=== PATIENT | male | born 1990 | race Asian ===

== ENCOUNTER 2025-04-07 10:21 | Emergency (ER) | payer OTHER, SELFPAY ==
[2025-04-07 10:23] VITALS: BP 143/107
[2025-04-07 10:34] LABS: Hematocrit 45.9 % (39.0-52.0); Hemoglobin 16.2 g/dL (13.0-18.0); Mean Corp Hgb Conc. 35.3 g/dL (33.0-37.0); Mean Corpuscular Volume 82.7 fL (80.0-94.0); Nucleated Red Blood Cells % 0 % (-); Platelet Count 265 10^3/uL (130-400); Red Cell Dist. Width 12.3 % (11.5-14.5)
--- NOTE | 2025-04-07 11:10 | ED.GENMED ---
History of Present Illness
General
Chief Complaint: Abdominal Pain
Source: patient and family
Exam Limitations: none
Time Seen by Provider: 04/07/25 11:00
Nursing documentation reviewed up to this point in time: agreed with
History of Present Illness
History of Present Illness:
35-year-old male companied by his parents presents with abdominal symptoms onset about a month ago diarrheal illness, self-limiting since any sick cramping changes bowel habits no normal bowel movement since then, cramping in his right groin, no
hematuria no fevers no blood in his stool saw his PCP had blood work told could be IBS or inflammatory bowel disease has no family history of laboratory bowel disease no weight loss no prior abdominal surgery
Phy Exam
Physical Exam
Physical Exam:
Physical Exam
General: no apparent distress, not acutely ill
Neck: Dry lips
Heart: s1/s2 regular rate and rhythm, no murmur. equal radial pulses.
Lungs: no acute respiratory distress. clear bilaterally
Abdomen: Tender in the right inguinal region minimally, no appreciable hernia
Neuro: alert and oriented. no focal neurological deficits
Skin: no rash
Psychiatric: well kept. interactive and cooperative
Extremities: no edema.
Course
Orders/Labs/Results
Orders:
Orders
04/07/25 10:25
IV Insert/Care/Rem.- Treatment PRN
04/07/25 10:29
Basic Metabolic Panel Urgent
Complete Blood Count/With Diff Urgent
Erythrocyte Sed Rate Urgent
Comment: ADD ON
Lipase Urgent
04/07/25 11:09
Add On- LAB Urgent
Tests Added?: ESR/CRP
CT Abd/pelvis W Iv Cont Urgent
Comment:
Reason For Exam: Lower abdominal pain change in bowel habits
Urinalysis Reflex To Culture Urgent
04/07/25 12:33
Dicyclomine [Bentyl] 20 mg PO NOW STA
04/07/25 12:34
Magnesium Hydroxide [Milk of Magnesia] 30 ml PO NOW STA
Abnormal Lab Results
04/07/25
10:29
Chloride 110 H mmol/L
(98-107)
Carbon Dioxide 20 L mmol/L
(22-30)
04/07/25 10:29
04/07/25 10:29
Vital Signs
Initial and Last Documented VS:
Initial Vital Signs
Temp Pulse Resp BP Pulse Ox
98.8 F 71 18 143/107 96
04/07/25 10:23 04/07/25 10:23 04/07/25 10:23 04/07/25 10:23 04/07/25 10:23
Last Documented Vital Signs
Temp Pulse Resp BP Pulse Ox
98.8 F 71 18 143/107 96
04/07/25 10:23 04/07/25 10:23 04/07/25 10:23 04/07/25 10:23 04/07/25 11:11
MDM/Problems Addressed
Differential Diagnosis Includes:
Colitis inflammatory bowel disease IBS renal colic hernia
MDM/Problems Addressed:
Abdominal symptoms
*Radiology
Radiology exam reviewed: radiology read reviewed
*Pulse Oximetry
SaO2: 96
Oxygen Mode of Delivery: Room air
Patient hypoxic: no
*Critical Care Note
Total Time (30-74mins, 75-104mins- exclusive of procedures): Not Applicable
Update Note
Update Note:
12:25 PM
Labs noted inflammatory markers noted CT report noted
Reviewed with family and patient will discharge with plan diet follow-up with GI/PCP
ED Attending Note
-
Portions of this chart may have been created with voice recognition software.� Occasional wrong word or��sound alike� substitutions may have occurred due to the inherent limitations of voice recognition software.
Discharge Plan
Departure
Patient Disposition: Home (Routine Discharge)
Date of Disposition: 04/07/25
Time of Disposition: 12:35
Patient with high blood pressure during this ER visit?: No
Condition: Good
Discharge Problem:
Abdominal pain
Instructions: Abdominal Pain, [place] diet
Prescriptions:
New
dicyclomine 20 mg tablet
20 mg PO QID PRN (Reason: abdominal cramps) Qty: 20 0RF
polyethylene glycol 3350 [Miralax] 17 gram/dose powder
4 g PO DAILY PRN (Reason: Constipation) Qty: 238 0RF
Referrals:
Jessie Rosales PA-C [Family Provider, Internal Medicine]
Nicky Perez DO [Active, Gastroenterology] - Next open appointment
Interventions
Interventions:
*Risk Screen - Suicide Last Done: 04/07/25 10:23
*Neglect/Abuse Screening Last Done: 04/07/25 10:23
Discharge Date and Time
Print Language: URDU
[2025-04-07 11:15] LABS: Blood Urea Nitrogen 9 mg/dl (9-20); Calcium 9.6 mg/dl (8.4-10.2); Carbon Dioxide 20 mmol/L (22-30); Chloride 110 mmol/L (98-107); Glucose 96 mg/dl (70-99); Lipase 133 U/L (23-300); Sodium 140 mmol/L (135-145); eGFR > 60.00
[2025-04-07 12:00] VITALS: BP 132/85
[2025-04-07] MEDS: BENTYL 20 MG PO (12:43)
[2025-04-07] MEDS: MILK OF MAGNESIA 30 ML PO (12:43)
== END 2025-04-07 13:10 | disposition home or self-care (01) ==
LOC: EMR 10:21
PROVIDERS: Emergency Medicine; EMERGENCY PHYSICIAN Emergency Medicine; FAMILY PHYSICIAN Physician Assistant
DX: R10.9 Unspecified abdominal pain (principal); R19.7 Diarrhea, unspecified
CPT/HCPCS: 99284; 74177; 80048; 83690; 85025; 85652; Q9967

== ENCOUNTER 2025-06-06 06:21 | Day surgery (SDC) | payer OTHER, SELFPAY | END 2025-06-06 11:09 | disposition home or self-care (01) | LOC: GI 06:21 | PROVIDERS: ATTENDING PHYSICIAN Internal Medicine Gastroenterology | DX: R76.8 Other specified abnormal immunological findings in serum (principal); R19.7 Diarrhea, unspecified | CPT/HCPCS: 43239; 88305 ==